=== PATIENT | female | born 1995 ===

== ENCOUNTER 2018-03-25 00:54 | Emergency (ER) | payer SELFPAY ==
[2018-03-25 01:24] VITALS: BP 116/68; PULSE 69; RESP 16; TEMP 99.1; O2SAT 100
[2018-03-25] MEDS ORDERED: Sodium Chloride 0.9% 1,000 ML IV STA (01:57)
--- NOTE | 2018-03-25 02:12 | ED PDOC ---
HPI: Abdomen <Lindsay Buchanan - Last Filed: 03/25/18 03:07> Additional Complaint(s): 22 yo female with no significant PMHx presents to ER with complaints of left sided lower abdominal pain associated with one episodes of vomiting and 3 episodes diarrhea since yesterday evening. Patient reports she also started her menstruation at the same time of the other symptoms (states this is her 2nd menstruation w/in this month. No hx irregular menstruation. Denies fever but admits to have chills. Denies any dysuria, vaginal discharge or dizziness. Patient is sexually active with one partner and does not use protection. Denies hx STI. PMD: [facility] <Sultan Alka - Last Filed: 03/25/18 04:07> Time Seen by Provider: 03/25/18 01:22 Chief Complaint (Nursing): Abdominal Pain Past Medical History Vital Signs: Last Vital Signs Temp 99.1 F 03/25/18 01:18 Pulse 69 03/25/18 01:18 Resp 16 03/25/18 01:18 BP 116/68 03/25/18 01:18 Pulse Ox 100 03/25/18 02:16 <Lindsay Buchanan - Last Filed: 03/25/18 03:07> Vital Signs: Last Vital Signs Temp 99.1 F 03/25/18 01:18 Pulse 69 03/25/18 01:18 Resp 16 03/25/18 01:18 BP 116/68 03/25/18 01:18 Pulse Ox 100 03/25/18 01:18 - Immunization History Hx Tetanus Toxoid Vaccination: Yes Hx Influenza Vaccination: Yes Hx Pneumococcal Vaccination: No <Sultan Alka - Last Filed: 03/25/18 04:07> - Home Medications Home Medications: Ambulatory Orders Medication Instructions Recorded Magnesium Citrate [Citrate of 300 ml PO ONCE PRN #1 solution 12/05/17 Magnesia] - Allergies Allergies/Adverse Reactions: Allergies Allergy/AdvReac Type Severity Reaction Status Date / Time No Known Allergies Allergy Verified 12/23/16 13:15 Review of Systems ROS Statement: Except As Marked, All Systems Reviewed And Found Negative Constitutional: Positive for: Chills. Negative for: Fever Cardiovascular: Negative for: Chest Pain Respiratory: Negative for: Cough, Shortness of Breath Gastrointestinal: Positive for: Vomiting, Abdominal Pain, Diarrhea Genitourinary Female: Negative for: Dysuria, Hematuria, Vaginal Discharge Skin: Negative for: Rash <Wharton - Last Filed: 03/25/18 04:07> Physical Exam - Physical Exam Appears: Positive for: Non-toxic, No Acute Distress Head Exam: Positive for: ATRAUMATIC, NORMOCEPHALIC Skin: Positive for: Normal Color, Warm Neck: Positive for: Normal, Supple Cardiovascular/Chest: Positive for: Regular Rate, Rhythm. Negative for: Murmur Respiratory: Positive for: Normal Breath Sounds. Negative for: Rales, Rhonchi, Wheezing Gastrointestinal/Abdominal: Positive for: Bowel Sounds, Soft, Tenderness (Mild LLQ TENDERNESS). Negative for: Distended, Guarding, Rebound Extremity: Positive for: Normal ROM Neurologic/Psych: Positive for: Alert, Oriented <Sultan Alka - Last Filed: 03/25/18 04:07> - Laboratory Results Result Diagrams: 03/25/18 02:10 03/25/18 02:10 <Lindsay Buchanan - Last Filed: 03/25/18 03:07> - Laboratory Results Result Diagrams: 03/25/18 02:10 03/25/18 02:10 Interpretation Of Abn Labs: WBC 4.3 Urine POC: Negative Urine dip results: Negative for: Nitrate - ECG O2 Sat by Pulse Oximetry: 100 - Progress ED Course And Treament: 22 YO female presents with c/o LLQ pain, nausea, vomiting, diarrhea in the setting of her new onset menstruation. Plan: CBC W/ DIFF CMP LIPASE MG PHOS VBG URINE HCG PT/INR TORADOL 30 MG IVP ZOFRAN NS 1 L @1000 CC/HR Time 3:45 All labs reviewed, no significant abnormality seen. Patient was re-evaluated and states her abdominal pain has subsided significantly and nausea, vomiting and diarrhea resolved. Patient is advised to f/u with PMD and [facility] outpatient ([facility] information provided) Advised to return to ER if worsening abdominal pain, nausea, vomiting or new onset fever or chills. Patient verbalizes understanding and are in agreement with the plan. Plan d/w Dr. Buchanan Re-evaluation Time: 03:45 Condition: Re-examined, Improved <WhartonSultan - Last Filed: 03/25/18 04:07> Medical Decision Making Medical Decision Making: Patient seen and evaluated at bedside with resident, including HPI and exam. Agree with assessment, plan and discharge. <Lindsay Buchanan - Last Filed: 03/25/18 03:07> Disposition <Lindsay Buchanan - Last Filed: 03/25/18 03:07> - Patient ED Disposition Is Patient to be Admitted: No - Disposition Disposition: Routine/Home Disposition Time: 04:03 <Sultan Alka - Last Filed: 03/25/18 04:07> - Clinical Impression Clinical Impression: Abdominal pain, Vomiting - Disposition Referrals: [facility] [Outside] Condition: STABLE Additional Instructions: Please follow up at [facility] (call to make appointment) You make take ibuprofen 600 mg every 8 hours as needed with food for pain. Instructions: Nausea and Vomiting, Adult (DC), Acute Abdomen (Belly Pain), Adult (DC) Forms: [facility] (Bel[place]ian) Print Language: ARMENIAN
[2018-03-25 02:39] LABS: SQUAMOUS EPITHIAL 2 /hpf (0-5); URINE BACTERIA RARE (<OCC); URINE BILIRUBIN NEGATIVE (NEGATIVE); URINE BLOOD MODERATE (NEGATIVE); URINE CLARITY CLEAR (Clear); URINE COLOR YELLOW (YELLOW); URINE GLUCOSE (UA) NEG (NEGATIVE); URINE LEUKOCYTE ESTERASE TRACE Leu/uL (Negative); URINE PROTEIN NEGATIVE (NEGATIVE); URINE UROBILINOGEN 0.2-1.0 mg/dL (0.2-1.0)
[2018-03-25 02:40] LABS: VENOUS BLOOD GAS BASE EXCESS 1.3 mmol/L (0.0-2.0); VENOUS BLOOD GAS PCO2 47 mmHg (40-60); VENOUS BLOOD GAS PO2 23 mm/Hg (30-55); VENOUS BLOOD PH 7.37 (7.32-7.43)
[2018-03-25 02:42] LABS: BASO % 0.6 % (0.0-2.0); EOS # 0.1 K/uL (0.0-0.7); EOS % 1.8 % (0.0-4.0); HEMOGLOBIN 11.8 g/dL (12.0-16.0); LYMPH # 1.2 K/uL (1.0-4.3); LYMPH % 26.6 % (20.0-40.0); MEAN CELL VOLUME 82.9 fl (81.0-99.0); MEAN CORPUSCULAR HEMOGLOBIN 27.6 pg (27.0-31.0); MEAN CORPUSCULAR HGB CONC 33.3 g/dL (33.0-37.0); MEAN PLATELET VOLUME 10.3 fl (7.2-11.7); MONO # 0.5 K/uL (0.0-0.8); MONO % 11.1 % (0.0-10.0); NEUT # 2.6 K/uL (1.8-7.0); NEUT % 59.9 % (50.0-75.0); NRBC % 0.2 % (0.0-0.0); RBC 4.27 Mil/uL (3.80-5.20); RED CELL DISTRIBUTION WIDTH 13.8 % (11.5-14.5); WHITE BLOOD COUNT 4.3 K/uL (4.8-10.8)
[2018-03-25 02:50] LABS: INR 1.1
[2018-03-25 02:53] LABS: PARTIAL THROMBOPLASTIN TIME 33.2 Seconds (25.6-37.1)
[2018-03-25 02:56] LABS: BLOOD UREA NITROGEN 8 mg/dl (7-17); CALCIUM 9.5 mg/dL (8.4-10.2); GFR NON-AFRICAN AMERICAN > 60; LIPASE 85 U/L (23-300)
[2018-03-25 03:00] LABS: ALBUMIN 4.6 g/dL (3.5-5.0); ALT/SGPT < 6 U/L (9-52); AST/SGOT 39 U/L (14-36)
[2018-03-25 03:22] LABS: PROTHROMBIN TIME 12.5 Seconds (9.8-13.1)
== END 2018-03-25 04:29 | disposition home or self-care (01) ==
LOC: H.ER 00:54
DX: R10.30 Lower abdominal pain, unspecified (principal); R11.10 Vomiting, unspecified
CPT/HCPCS: 80053; 81003; 81025; 82803; 83690; 83735; 84100; 85025; 85610; 85730; 96361; 96374; 96375; 99283; J1885; J2405; J7030